=== PATIENT | female | born 1945 | race Caucasian/White ===

== ENCOUNTER → 2016-10-27 | Outpatient (CLI) | payer OTHER, MEDICARE ==
--- NOTE | 2016-10-27 18:49 | DX ---
DEXA Bone Mineral Densitometry Clinical Indications: Postmenopausal, post hysterectomy, history of breast cancer and lumbar fusion surgery Comparison: October 24, 2014 Technique: Bone Mineral Densitometry (BMD) by Dual Energy X-Ray Absorptiometry (DEXA) was performed utilizing the FileThis scanner. The lumbar spine was not measured due to prior fusion surgery. The bilateral hips and forearm were evaluated in the AP projection. Vertebral fracture assessment w as also performed. AP Left Hip: Neck BMD: 0.934 gm/cm2 T-score: -0.8 SD Z-score: 0.6 SD Total BMD is significantly decreased by 7.3% AP Right Hip: Neck BMD: 0.894 gm/cm2 T-score: -1.0 SD Z-score: 0.3 SD Total BMD is significantly decreased by 6.2% AP Left Forearm, 10/07: BMD: 0.848 gm/cm2 T-score: -0.3 SD Z-score: 1.7 SD Significantly decreased by 7.3% Vertebral Fracture Assessment: No significant fracture deformity. Conclusion: Considering the lowest measured site, the patient has significantly decreased since 2014, but remains low normal. The ten year FRAX risk for any major osteoporotic fracture is 8.8% and for a hip fracture is 1.1%. Any bone loss in this patient is probably related to aging or estrogen deficiency. To prevent osteoporosis and to promote the patient's bone density, the following recommendations shou ld be considered: 1. Pursue a regular regimen of weightbearing and muscle strengthening exercises in order to reduce t he risk of falls and fractures (as tolerated by the patient's general medical condition). 2. Ensure that daily dietary calcium uptake is maximized. 3. Consider checking the serum vitamin D level. Ensure that intake of vitamin D is 800 IU per day (f or ages 71 and older). 4. Consider follow-up DEXA scan in two years to reassess the rate of bone loss in this patient.
== END ==
LOC: BRMIMAGING 11:05
PROVIDERS: ATTEND Internal Medicine Hematology & Oncology
DX: Z13.820 Encounter for screening for osteoporosis (principal); C50.211 Malignant neoplasm of upper-inner quadrant of right female breast; Z78.0 Asymptomatic menopausal state; Z90.710 Acquired absence of both cervix and uterus; Z85.3 Personal history of malignant neoplasm of breast; Z98.1 Arthrodesis status

== ENCOUNTER 2017-05-20 05:52 | Inpatient (IN) | payer OTHER, MEDICARE ==
[2017-05-20] MEDS ORDERED: TRANEXAMIC ACID 850 MG in NS 100 ML IV ONE ×2 (06:00→08:30)
[2017-05-20] MEDS ORDERED: DEXAMETHASONE 4 MG/ML VIAL IVP ONE (06:02)
[2017-05-20] MEDS ORDERED: FAMOTIDINE 20 MG TAB PO ONE (06:02)
[2017-05-20] MEDS ORDERED: ACETAMINOPHEN 325 MG TAB PO ONE (06:02)
[2017-05-20] MEDS ORDERED: ceFAZolin 2 GM/DEXTROSE 100 ML IV ONE (06:02)
[2017-05-20] MEDS ORDERED: LIDOCAINE 1% 2 ML INJ ID PRN (06:19)
[2017-05-20] MEDS ORDERED: LR 1,000 ML IV ONE (06:19)
[2017-05-20] MEDS ORDERED: ceFAZolin 1 GM/5 ML SYR ONE (06:48)
[2017-05-20] MEDS ORDERED: LIDOCAINE 1% 2 ML INJ ONE (06:48)
[2017-05-20] MEDS ORDERED: TRANEXAMIC ACID 3,000 MG/50 ML BAG IRR ONE ×2 (06:58→08:07)
[2017-05-20] MEDS ORDERED: MIDAZOLAM 2 MG/2 ML VIAL IVP ONE (07:12)
[2017-05-20] MEDS ORDERED: LIDOCAINE 2% 5 ML SDV ONE (07:14)
[2017-05-20] MEDS ORDERED: PROPOFOL/EMULSION 500 MG/50 ML BOTTLE IV ONE (07:14)
--- NOTE | 2017-05-20 07:15 | PDHPUP ---
History & Physical Update H&P update statement: This history and physical update is based on an assessment of the patient which was completed after admission or registration (within 24 hours), but prior to the surgery/procedure.
[2017-05-20] MEDS ORDERED: ROPIVACAINE 0.2% 80 MG, EPINEPHrine 0.2 MG, KETOROLAC TROMETHAMINE 30 MG, morphINE 10 M... IU ONE (07:19)
--- NOTE | 2017-05-20 07:20 | PDANEPAE ---
ANE History of Present Illness tka /oa ANE Past Medical History - Cardiovascular History Hx Hypertension: Yes Hx Arrhythmias: No Hx Chest Pain: No Hx Coronary Artery / Peripheral Vascular Disease: No Hx CHF / Valvular Disease: No Hx Palpitations: No - Pulmonary History Hx COPD: No Hx Asthma/Reactive Airway Disease: No Hx Recent Upper Respiratory Infection: No Hx Oxygen in Use at Home: No Hx Sleep Apnea: No Sleep Apnea Screening Result - Last Documented: Negative - Neurologic History Hx Cerebrovascular Accident: No Hx Seizures: No Hx Dementia: No Neurologic History Comment: DJD. RLS - Endocrine History Hx Diabetes: No - Renal History Hx Renal Disorders: No - Liver History Hx Hepatic Disorders: No Hepatic History Comment: HX CHOLELITHIASIS- CHOLECYSTECTOMY - Neurological & Psychiatric Hx Hx Neurological and Psychiatric Disorders: No - Cancer History Hx Cancer: Yes Cancer History Comment: Breast Cancer 06/2015 Radiation and oral chemo - Congenital Disorder History Hx Congenital Disorders: No - GI History Hx Gastrointestinal Disorders: Yes Gastrointestinal History Comment: GERD. BARRETTS ESOPHAGUS. HX DIVERTICULOSIS OF THE COLON - Other Health History Other Health History: none - Chronic Pain History Chronic Pain: Yes (right knee) - Surgical History Prior Surgeries: 12/12/15 left knee scope with Gavino. spinal fusion. Partial Hysterectomy. cholecytectomy ANE Review of Systems - Exercise capacity METS (RN): 4 METS ANE Patient History - Allergies Allergies/Adverse Reactions: No Allergies [NKDA] Allergy (Verified 04/22/17 10:17) - Home Medications Home Medications: Anastrozole [Arimidex 1 mg (*)] 1 mg PO DAILY 11/22/15 [Last Taken 05/20/17 04: 00] Aspirin [Aspirin 81mg (*)] 81 mg PO DAILY 11/22/15 [Last Taken 05/13/17] Gabapentin [Neurontin 400 MG (*)] 800 mg PO HS 11/22/15 [Last Taken 05/19/17 19: 00] HYDROcodone/APAP 10/325 [[place] 10/325 (*)] 1 tab PO TID 11/22/15 [Last Taken 04:00] Lisinopril [Zestril 10 mg (*)] 10 mg PO DAILY 11/22/15 [Last Taken 05/20/17 04: 00] Omeprazole [Prilosec 20 mg] 20 mg PO DAILY 11/22/15 [Last Taken 05/20/17 04:00] Cholecalciferol Vit D3 [Vitamin D3 2000 units tab (OTC)] 2,000 units PO DAILY [Last Taken 05/13/17] Herbals/Supplements -Info Only 1 ea PO DAILY 04/17/17 [Last Taken 05/13/17] Magnesium Oxide [Magnesium Oxide 400 mg (*)] 400 mg PO BID 04/17/17 [Last Taken 05/13/17] [place]-3 Fatty Acids [Fish Oil 1000 mg (*)] 1,000 mg PO BID 04/17/17 [Last Taken 05/13/17] Pramipexole Di-HCl [Mirapex 0.125 mg (*)] 0.125 mg PO DAILY 04/17/17 [Last Taken 05/19/17 19:00] Vitamin B Complex [B Complex] 1 each PO DAILY 04/17/17 [Last Taken 05/13/17] - NPO status NPO Since - Liquids (Date): 05/19/17 NPO Since - Liquids (Time): 01:00 NPO Since - Solids (Date): 05/19/17 NPO Since - Solids (Time): 20:00 - Anes Hx Anes Hx: no prior problems - Smoking Hx Smoking Status: Never smoked - Family Anes Hx Family Hx Anesthesia Complications: none ANE Labs/Vital Signs - Vital Signs Blood Pressure: 123/74 Heart Rate: 69 Respiratory Rate: 18 O2 Sat (%): 95 Height: 160.02 cm Weight: 86.183 kg ANE Physical Exam - Airway Mallampati Score: Class 2 Mouth exam: normal dental/mouth exam - Pulmonary Pulmonary: no respiratory distress - Cardiovascular Cardiovascular: regular rate and rhythym - ASA Status ASA Status: II ANE Anesthesia Plan Anesthesia Plan: spinal Regional Anesthesia: adductor canal FNB
[2017-05-20] MEDS ORDERED: HYDROmorphONE/DILAUDID 2 MG/ML INJ ONE (07:53)
[2017-05-20] MEDS ORDERED: ONDANSETRON 4 MG/2 ML VIAL ONE (08:03)
[2017-05-20] MEDS ORDERED: KETOROLAC 30 MG/1 ML SDV ONE (08:03)
[2017-05-20] MEDS ORDERED: DEXAMETHASONE 4 MG/ML VIAL ONE (08:03)
[2017-05-20] MEDS ORDERED: ENALAPRILAT DIHYDRATE 1.25 MG/ML VIAL ONE (08:16)
[2017-05-20] MEDS ORDERED: ROCURONIUM 50 MG/5 ML VIAL ONE (08:22)
[2017-05-20] MEDS ORDERED: NALOXONE HCL 0.4 MG/ML INJ IVP PRN (08:33)
[2017-05-20] MEDS ORDERED: ONDANSETRON 4 MG/2 ML VIAL IVP PRN ×2 (08:35→09:44)
[2017-05-20] MEDS ORDERED: MEPERIDINE 25 MG/ML SYR IVP PRN (08:35)
[2017-05-20] MEDS ORDERED: LR 500 ML IV PRN (08:35)
[2017-05-20] MEDS ORDERED: SUGAMMADEX SODIUM 200 MG/2 ML VIAL IVP ONE (09:00)
[2017-05-20] MEDS ORDERED: ENALAPRILAT DIHYDRATE 1.25 MG/ML VIAL IVP PRN (09:00)
[2017-05-20] MEDS ORDERED: ROPIVACAINE HCL 150 MG/30 ML INJ ONE (09:27)
[2017-05-20] MEDS ORDERED: PROMETHAZINE HCL 25 MG SUPPR PR PRN (09:44)
[2017-05-20] MEDS ORDERED: PHARMACY PAIN CONSULT 1 EA MISC PRN (09:44)
[2017-05-20] MEDS ORDERED: TEMAZEPAM 15 MG CAP PO PRN (09:44)
[2017-05-20] MEDS ORDERED: ONDANSETRON DISINTEGRATING 4 MG TAB PO PRN (09:44)
[2017-05-20] MEDS ORDERED: LACTULOSE 20 GM/30 ML UDCUP PO PRN (09:44)
[2017-05-20] MEDS ORDERED: diphenhydrAMINE 25 MG CAP PO PRN (09:44)
[2017-05-20] MEDS ORDERED: DIPHENOXYLATE/ATROPINE LOMOTIL 1 TAB PO PRN (09:44)
[2017-05-20] MEDS ORDERED: BISACODYL 10 MG SUPP PR PRN (09:44)
[2017-05-20] MEDS ORDERED: MAGNESIUM HYDROXIDE 30 ML UDCUP PO PRN (09:44)
[2017-05-20] MEDS ORDERED: PROMETHAZINE HCL 25 MG/ML INJ IVP PRN (09:44)
[2017-05-20] MEDS ORDERED: METOCLOPRAMIDE 10 MG/2 ML VIAL IVP PRN (09:44)
[2017-05-20] MEDS ORDERED: POLYETHYLENE GLYCOL 3350 17 GM PKT PO PRN (09:44)
[2017-05-20] MEDS ORDERED: HYDROmorphONE/DILAUDID 1 MG/ML SYR ONE (09:50)
--- NOTE | 2017-05-20 09:50 | POSTOPPROG ---
Post Op Note Date of Operation: 05/20/17 Surgeon: Burak Perdomo Casing Tester: Lynn Teresa PA-C Anesthesiologist: Dr. Soliz Anesthesia: GET(General Endotracheal), Spinal Pre-op Diagnosis: R knee osteoarthritis Post-op Diagnosis: R knee osteoarthritis Procedure: R Conformis TKA Findings: See full dictation Inf/Abcess present in the surg proc area at time of surgery?: No Depth: Organ Space EBL: 50-100
--- NOTE | 2017-05-20 09:52 | POSTANESTH ---
Post Anesthetic Evaluation Cardiovascular Status: Normal, Stable Respiratory Status: Normal, Stable Level of Consciousness/Mental Status: Can Participate in Eval Pain Control: Adequate, Prn Tx Ordered Nausea/Vomiting Control: Adequate, Prn Tx Ordered Complications Possibly Related to Anesthesia: None Noted
[2017-05-20] MEDS: HYDROmorphONE/DILAUDID 1 MG/ML SYR IVP PRN ×3 (09:58→10:23)
[2017-05-20] MEDS ORDERED: MEPERIDINE 25 MG/ML SYR ONE (09:59)
[2017-05-20] MEDS ORDERED: LR 1,000 ML IV SCH (10:00)
[2017-05-20] MEDS ORDERED: fentaNYL 100 MCG/2 ML INJ ONE (10:02)
[2017-05-20] MEDS: fentaNYL 100 MCG/2 ML INJ IVP PRN ×2 (10:04→10:14)
--- NOTE | 2017-05-20 11:11 | GOP ---
[f rep st] OPERATIVE REPORT DATE OF OPERATION: 05/20/2017 SURGEON: Burak Perdomo MD JEWEL BEARING BROACHER: Lynn Teresa PA-C ANESTHESIA: General. PREOPERATIVE DIAGNOSIS: Right knee osteoarthritis. POSTOPERATIVE DIAGNOSIS: Right knee osteoarthritis. PROCEDURE PERFORMED: Right total knee arthroplasty. FINDINGS: DESCRIPTION OF PROCEDURE: The patient was taken to the operating room, administered general anesthe pankaj, placed in supine position. The right lower extremity was prepped and draped in normal sterile fashion. Esmarch exsanguination performed, followed by elevation of thigh cuff to 300 mmHg pressure . Midline incision was made through dermal and subcutaneous tissues. Medial parapatellar incision was made through the retinacular tissues. The patella was reflected laterally. The patella was dale sured. An 8 mm cut was selected. Three drill lugs were drilled. A 32 mm patellar trial button fit well. The distal femur was exposed. The distal femoral lug drill guide was placed in the distal f emur and indexed off the anterior cortex. This was drilled down to subchondral bone in medial and l ateral femoral condyles. Subchondral bone was used to index our distal femoral cut. The guide was put in position, and 3 pins were used to fixate it proximally. Two distal pins were drilled to get our rotational alignment into the distal aspect of the condyles. These were removed, and the holes were marked. The distal femoral cut was made initially with the reciprocating saw and then with the oscillating saw. The cuts were assessed for flatness using the planar block. The tibia was then s ubluxed anteriorly. The proximal tibial articular surface was denuded with a ring curette down to t he subchondral bone. The medial metaphyseal bone was exposed. The tibial guide was put in position and pinned. Three pins were utilized to secure the tibial cutting block. The tibial cut was then made with the oscillating saw. The posterior portions of medial and lateral menisci were excised. The flexion and extension gaps were assessed and were felt to be in balance. The distal femoral cut ting block was then placed on the 2 previous drilled holes. The pins were inserted first, and then the block was placed over the pins. We assessed our flexion gap and rotated the AP cutting block in to appropriate alignment. This was then pinned in position. Two drill lugs were drilled in the dis harsha femur. Our AP cuts were then made with the oscillating saw. The anterior chamfer cut was then made with the oscillating saw. This cutting block was then removed. Our posterior chamfer cutting block was put in position and secured. We subsequently made our 2 posterior chamfer cuts. Trial fe mur was put in position. We assessed for osteophytes around it. It fit perfectly. The tibial tray was placed onto the tibial cut. The knee was put through flexion and extension arc of motion. Our rotational axis was marked. The trial implants were removed. The tibial tray was put back in posi tion and secured with 2 pins. We then drilled our metaphyseal drill and impacted our fin impaction device. Thorough lavage performed of all surfaces with normal saline. Cement mixing commenced. Th e real implants were opened. The tibia was cemented into place first, followed by the femur, follow ed by the patella. All excess cement was removed. Tourniquet was let down. Small bleeders were ca uterized. The implant was put through a flexion and extension arc of motion. We elected to go with a 6 mm medial and a lateral tibial insert. The real inserts were opened and impacted into position . No-thumbs patella test revealed the patella tracked well. Thorough lavage was again performed wi th normal saline. The closure was then performed with #2 Ethibond in the retinaculum, followed by 2 -0 Vicryl in the subcutaneous tissues, followed by brenda in the dermis. A sterile compression lizbeth ssing was applied, followed by JODI hose and pneumatic compression stockings. The patient tolerated the procedure well, was transferred back to the recovery room in stable condition. There were no op erative complications. COMPLICATIONS: None. /[id number]/MODL
[2017-05-20] MEDS: ACETAMINOPHEN 325 MG TAB PO SCH ×3 (12:57→23:40)
[2017-05-20] MEDS: ceFAZolin 2 GM/DEXTROSE 100 ML IV SCH ×2 (12:57→21:45)
[2017-05-20] MEDS: KETOROLAC 30 MG/1 ML SDV IVP PRN ×2 (13:05→21:41)
[2017-05-20] MEDS ORDERED: WARFARIN SODIUM 5 MG TAB PO SCH (16:00)
[2017-05-20] MEDS: CYCLOBENZAPRINE 10 MG TAB PO PRN ×2 (16:02→23:39)
[2017-05-20] MEDS: oxyCODONE IR 5 MG TAB PO PRN ×2 (18:12→21:43)
[2017-05-20] MEDS ORDERED: GABAPENTIN 400 MG CAP PO SCH (21:00)
[2017-05-20] MEDS: FAMOTIDINE 20 MG TAB PO SCH (21:42)
[2017-05-20] MEDS: SENNOSIDES/DOCUSATE SODIUM TAB PO SCH (21:42)
[2017-05-21] MEDS: ACETAMINOPHEN 325 MG TAB PO SCH ×2 (05:01→14:21)
[2017-05-21 05:18] LABS: HEMATOCRIT 30.2 % (38.0-47.0); HEMOGLOBIN 9.7 g/dL (12.6-16.3)
[2017-05-21 05:31] VITALS: RESP 16
[2017-05-21 05:36] LABS: INR 1.72 (0.83-1.16); PROTIME(PATIENT) 20.2 SEC (12.0-15.0)
--- NOTE | 2017-05-21 07:40 | SOAPPROG ---
SOAP Progress Note Assessment/Plan: Assessment/Plan: s/p R TKA POD#1 - Continue pain management - Finish course of antibiotic prophylaxis - Continue PT/OT - Polar care on - WBAT - Coumadin for VTE chemoprophylaxis - SCDs/TEDs for mechanical prophylaxis - Requests home PT - Likely discharge today pending PT approval 05/21/17 07:37 Subjective: Pt states she is doing well. Has been up with PT and ambulating with her front wheeled walker. Pt would like home PT because it is very difficult for her to get in and out of the car with her other joint pains. Pain is a 1/10 and well controlled. Pt denies fever, chills, chest pain, SOB, abdominal pain, N/V/D, numbness, tingling, and calf pain. Objective: Vital Signs Temp Pulse Resp BP Pulse Ox 37.1 C 69 16 102/55 L 95 05/21/17 04:00 05/21/17 04:00 05/21/17 04:00 05/21/17 04:00 05/21/17 04:00 Laboratory Results 05/21/17 04:47 05/20/17 05/21/17 05/22/17 05:59 05:59 05:59 Intake Total 1035 Output Total 750 Balance 285 PT 20.2 SEC (12.0-15.0) H 05/21/17 04:47 INR 1.72 (0.83-1.16) H 05/21/17 04:47 Physical Exam - Physical Exam General Appearance: alert, no apparent distress Cardiac/Chest: normal peripheral pulses Skin: normal color, warm/dry, other (Incision site c/d/i without any erythema, calor or discharge) Extremities: normal inspection, normal capillary refill, swelling (localized edema R knee), other (Good straight leg raise), No pedal edema, No calf tenderness, No Yuriy's sign Neuro/Psych: no motor/sensory deficits, alert, normal mood/affect, oriented x 3 ICD10 Worksheet Patient Problems: Problems Problem Status Onset Osteoarthritis of right knee Acute - ICD10 Problem Qualifiers (1) Osteoarthritis of right knee Qualifiers: Osteoarthritis type: primary Qualified Code(s): M17.11 - Unilateral primary osteoarthritis, right knee
[2017-05-21] MEDS ORDERED: ANASTROZOLE 1 MG TAB PO SCH (09:00)
[2017-05-21] MEDS ORDERED: PRAMIPEXOLE 0.125 MG TAB PO SCH (09:00)
[2017-05-21] MEDS ORDERED: LISINOPRIL 10 MG TAB PO SCH (09:00)
[2017-05-21] MEDS: FAMOTIDINE 20 MG TAB PO SCH (09:39)
[2017-05-21] MEDS: SENNOSIDES/DOCUSATE SODIUM TAB PO SCH (09:39)
[2017-05-21 12:37] VITALS: BP 96/49; PULSE 85; TEMP 98.2; O2SAT 94
--- NOTE | 2017-05-21 13:47 | PDIAF ---
- Diagnosis Diagnosis: Right knee osteoarthritis Code Status: Full Code - Medication Management Discharge Medications: Medications to Continue on Transfer Anastrozole [Arimidex 1 mg (*)] 1 mg PO DAILY 11/22/15 [Last Taken 05/20/17 04: 00] Gabapentin [Neurontin 400 MG (*)] 800 mg PO HS 11/22/15 [Last Taken 05/19/17 19: 00] Lisinopril [Zestril 10 mg (*)] 10 mg PO DAILY 11/22/15 [Last Taken 05/20/17 04: 00] Omeprazole [Prilosec 20 mg] 20 mg PO DAILY 11/22/15 [Last Taken 05/20/17 04:00] Cholecalciferol Vit D3 [Vitamin D3 2000 units tab (OTC)] 2,000 units PO DAILY [Last Taken 05/13/17] Herbals/Supplements -Info Only 1 ea PO DAILY 04/17/17 [Last Taken 05/13/17] Magnesium Oxide [Magnesium Oxide 400 mg (*)] 400 mg PO BID 04/17/17 [Last Taken 05/13/17] Pramipexole Di-HCl [Mirapex 0.125 mg (*)] 0.125 mg PO DAILY 04/17/17 [Last Taken 05/19/17 19:00] Vitamin B Complex [B Complex] 1 each PO DAILY 04/17/17 [Last Taken 05/13/17] Acetaminophen [Tylenol 325mg (*)] 650 mg PO Q6HRS #0 tab 05/21/17 [Last Taken Unknown] Famotidine [Pepcid 20 MG (*)] 20 mg PO BID #0 tab 05/21/17 [Last Taken Unknown] Warfarin Sodium [Coumadin 5MG (*)] 5 mg PO DAILY16 #0 tab 05/21/17 [Last Taken Unknown] oxyCODONE IR [Oxycodone Ir (*)] 5 - 10 mg PO Q4-6PRN PRN #50 tab 05/21/17 [Last Taken Unknown] Discharge Medications: Refer to the Discharge Home Medication list for PRN reason. - Orders Services needed: Registered Nurse (INR blood draw each Thursday and x 3 weeks), Physical Therapy (Bi-weekly) Diet Recommendation: no restrictions on diet Diet Texture: Regular Texture Diet Activity/Weight Bearing Restrictions: Weight bearing as tolerated RLE. PT services bi-weekly, use front-wheeled walker - Labs/Radiology PT/INR Date: 05/25/17 (Each Thursday and x 3 weeks) - Follow Up Care Current Providers and Referrals: Kelin Clark MD [Primary Care Provider] - Burak Perdomo MD [Medical Doctor] - (Follow-up in the office at your post- operative appointment June 01, 2017, or call the office sooner with any questions or concerns)
--- NOTE | 2017-05-21 13:52 | PDDCSUM ---
Discharge Summary Discharge Summary: 72y/o F was admitted to [facility] on 05/20/2017, to undergo an elective right Conformis TKA the same morning. Surgery went well without complications. Pt received 2gm Ancef prior to the procedure and an additional 3 doses over 24- hours after surgery for antibiotic prophylaxis. Pt was evaluated and cleared by PT/OT. Pain was well managed. Warfarin for VTE chemoprophylaxis. SCDs/ TEDs for mechanical prophylaxis. Pt will receive home PT and INR blood draws. Hospital course otherwise uneventful.
[2017-05-21] MEDS ORDERED: WARFARIN SODIUM 3 MG TAB PO ONE (16:00)
== END 2017-05-21 13:09 | disposition home or self-care (01) | DRG 470 ==
LOC: F3N 05:52
PROVIDERS: ADMIT Orthopaedic Surgery Sports Medicine; ATTEND Orthopaedic Surgery Sports Medicine
PROC: 0SRC0J9 Replacement of Right Knee Joint with Synthetic Substitute, Cemented, Open Approach (ICD-10-PCS; principal; 2017-05-20 07:15)
DX: M17.11 Unilateral primary osteoarthritis, right knee (principal); I10 Essential (primary) hypertension; K21.9 Gastro-esophageal reflux disease without esophagitis; Z98.1 Arthrodesis status; Z85.3 Personal history of malignant neoplasm of breast
CPT/HCPCS: 97110-GP; 97116-GP; 97161-GP; 97165-GO; 97530-GP; C1713; G8978-GP-CJ; G8979-GP-CI; G8980-GP-CI; G8987-GO-CI; G8988-GO-CI; G8989-GO-CI; J0171; J0690; J1100; J1170; J1885; J2250; J2405; J2704; J2795; J3010

== ENCOUNTER → 2017-08-06 | Outpatient (CLI) | payer OTHER, MEDICARE | LOC: BRMIMAGING 12:54 | PROVIDERS: ATTEND Family Medicine | DX: Z12.31 Encounter for screening mammogram for malignant neoplasm of breast (principal); Z85.3 Personal history of malignant neoplasm of breast | CPT/HCPCS: G0202 ==